=== PATIENT | female | born 1995 | race Caucasian/White ===

== ENCOUNTER 2019-07-11 23:47 | Inpatient (IN) ==
[2019-07-12] MEDS ORDERED: MEPERIDINE 50 MG/1 ML VIAL IV PRN
[2019-07-12] MEDS ORDERED: BUTORPHANOL 1 MG/ML VIAL IV PRN
[2019-07-12 00:24] LABS: Basophils % 0.3 % (0.0-0.8); Eosinophils # 0.1 10*3/uL (0.0-0.87); Eosinophils % 0.5 % (0.00-10.9); Hematocrit 33.8 VOL% (35.7-47.0); Hemoglobin 10.7 GM/DL (12.0-16.0); Immature Granulocytes % 2.3 %; Immature Granulocytes Absolute 0.22 #; Lymphocytes # 1.8 10*3/uL (1.4-4.0); Lymphocytes % 18.9 % (21.3-54.2); Mean Corpuscular HGB Conc 31.7 GM/DL (32-36); Mean Corpuscular Volume 87.8 FL (87-102); Mean Platelet Volume 11.7 FL (9.6-12.0); Platelet Count 174 T/CUMM (130-400); Red Blood Count 3.85 MC/CUMM (3.8-5.5); Red Cell Distribution Width 13.5 % (9.3-17.3); White Blood Count 9.5 T/CUMM (4-12)
[2019-07-12 00:36] LABS: INR 0.9; PT Patient Result 9.3 SECS; Partial Thromboplastin Time 24.6 SECS (20-40)
[2019-07-12 00:37] LABS: Alanine Aminotransferase 21 U/L (13-56); Albumin 2.5 G/DL (3.4-5.0); Alkaline Phosphatase 153 U/L (45-117); Aspartate Amino Transferase 21 U/L (0-37); Bilirubin,Total < 0.39 MG/DL (0.2-1.0); Blood Urea Nitrogen 9 MG/DL (7-18); Glucose 86 MG/DL (74-106); Osmolality,Calculated 276.4 MOS/KG (273-304); Uric Acid 2.8 MG/DL (2.6-6.0)
[2019-07-12 00:46] LABS: Apearance,Urine Slightly Hazy (Clear); Bacteria,Urine Occasional /HPF (Few); Bilirubin,Urine Negative (Negative); Blood, Urine Negative (Negative); Glucose,Urine (UA) Negative (Negative); Ketones,Urine Negative (Negative); Mucus,Urine Occasional /LPF (Occasional); Nitrite,Urine Negative (Negative); Protein,Urine 30 MG/DL; Squamous Epithelial Cell,Urine Few /HPF (0-10); Urine Color Yellow (Yellow); Urine Specific Gravity 1.017 (1.001-1.035); Urine Urobilinogen < 2.0 EU/DL (0.2-1.0); WBC,Urine 2 /HPF (0-6)
[2019-07-12] MEDS: LACTATED RINGERS 1,000 ML IV SCH ×3 (03:49→14:22)
[2019-07-12] MEDS ORDERED: OXYTOCIN/LR 20 UNIT/1,000 ML BAG IV SCH (09:00)
[2019-07-12] MEDS ORDERED: NALOXONE 0.4 MG/ML VIAL IV PRN (13:20)
[2019-07-12] MEDS ORDERED: diphenhydrAMINE 50 MG/1 ML VIAL IV PRN ×3 (13:20→21:58)
[2019-07-12] MEDS ORDERED: ePHEDrine 50 MG/ML AMP IV PRN (13:20)
[2019-07-12] MEDS ORDERED: FAMOTIDINE 20 MG/2 ML VIAL IV ONE (13:20)
[2019-07-12] MEDS ORDERED: LACTATED RINGERS 1,000 ML IV ONE (13:20)
[2019-07-12] MEDS ORDERED: CITRIC ACID/SODIUM CITRATE 30 ML UDCUP PO ONE (13:20)
[2019-07-12] MEDS ORDERED: fentaNYL 2 MCG/ROPIV 0.2% EPID 100 ML EPIDURAL SCH (13:30)
[2019-07-12 14:48] LABS: Apearance,Urine CLEAR (Clear); Bilirubin,Urine Negative (Negative); Blood, Urine Negative (Negative); Glucose,Urine (UA) Negative (Negative); Ketones,Urine 5 mg/dL (Negative); Nitrite,Urine Negative (Negative); Protein,Urine Negative; RBC,Urine <1 /HPF (0-4); Squamous Epithelial Cell,Urine Occasional /HPF (0-10); Urine Color Straw (Yellow); Urine Specific Gravity 1.005 (1.001-1.035); Urine Urobilinogen < 2.0 EU/DL (0.2-1.0); WBC,Urine <1 /HPF (0-6)
[2019-07-12] MEDS ORDERED: ceFAZolin 2,000 MG in PREMIX 1 EACH IV ONE (16:54)
[2019-07-12] MEDS ORDERED: OXYTOCIN/LR 30 UNIT/1,000 ML BAG IV ONE (16:55)
[2019-07-12] MEDS ORDERED: OXYTOCIN 10 UNIT/ML VIAL IM ONE (16:55)
[2019-07-12] MEDS ORDERED: CARBOPROST TROMETHAMINE 250 MCG/ML AMP IM ONE (17:09)
[2019-07-12] MEDS ORDERED: miSOPROStol 200 MCG TABLET ONE (17:38)
[2019-07-12] MEDS ORDERED: MORPHINE 10 MG/10 ML VIAL ONE (18:41)
[2019-07-12] MEDS ORDERED: ACETAMINOPHEN 325 MG TABLET PO PRN (18:42)
[2019-07-12] MEDS ORDERED: SIMETHICONE CHEW 80 MG TABLET PO PRN (18:42)
[2019-07-12] MEDS ORDERED: ONDANSETRON 4 MG/2 ML VIAL IV PRN ×2 (18:42)
[2019-07-12] MEDS ORDERED: OXYTOCIN/LR 20 UNIT/1,000 ML BAG IV ONE (18:42)
[2019-07-12] MEDS ORDERED: RHO(D) IMMUNE GLOBULIN 300 MCG SYRINGE IM ONE (18:42)
[2019-07-12] MEDS ORDERED: MAGNESIUM HYDROXIDE SUSP 30 ML UDCUP PO PRN (18:42)
[2019-07-12 18:55] LABS: Cord Venous Blood HCO3 22.6 MMOL/L; Cord Venous Blood PCO2 43.5 MMHG; Cord Venous Blood PO2 30.7
[2019-07-12] MEDS ORDERED: LACTATED RINGERS 1,000 ML IV SCH (19:00)
[2019-07-12] MEDS ORDERED: KETOROLAC 30 MG/1 ML VIAL IV PRN (21:58)
[2019-07-12] MEDS: DOCUSATE SODIUM 100 MG CAPSULE PO SCH (22:12)
[2019-07-12] MEDS ORDERED: hydrOXYzine HCL 25 MG/1 ML VIAL IM PRN (23:18)
[2019-07-12] MEDS ORDERED: diphenhydrAMINE 2% CREAM 28 GM TUBE TOP PRN (23:20)
[2019-07-13] MEDS ORDERED: diphenhydrAMINE 50 MG/1 ML VIAL IV PRN (02:10)
[2019-07-13] MEDS: ceFAZolin 1,000 MG in SYRINGE 1 EACH IV SCH ×2 (02:23→12:30)
[2019-07-13 03:22] LABS: Basophils % 0.2 % (0.0-0.8); Eosinophils % 0.2 % (0.00-10.9); Hematocrit 27.5 VOL% (35.7-47.0); Hemoglobin 8.6 GM/DL (12.0-16.0); Immature Granulocytes % 0.6 %; Immature Granulocytes Absolute 0.06 #; Lymphocytes # 1.2 10*3/uL (1.4-4.0); Lymphocytes % 12.6 % (21.3-54.2); Mean Corpuscular HGB Conc 31.3 GM/DL (32-36); Mean Corpuscular Volume 88.4 FL (87-102); Mean Platelet Volume 12.2 FL (9.6-12.0); Monocytes % 8.2 % (1.7-12.7); Neutrophils % 78.2 % (38.7-73.9); Platelet Count 139 T/CUMM (130-400); Red Blood Count 3.11 MC/CUMM (3.8-5.5); Red Cell Distribution Width 13.8 % (9.3-17.3); White Blood Count 9.6 T/CUMM (4-12)
[2019-07-13] MEDS: IBUPROFEN 800 MG TABLET PO PRN ×2 (06:37→19:15)
[2019-07-13] MEDS: MAGNESIUM HYDROXIDE SUSP 30 ML UDCUP PO SCH ×2 (08:42→21:01)
[2019-07-13] MEDS: MULTIVITAMIN (PRENATAL) TABLET PO SCH (08:42)
[2019-07-13] MEDS: FERROUS SULFATE 325 MG TABLET PO SCH ×3 (08:42→21:01)
[2019-07-13] MEDS: METOCLOPRAMIDE 10 MG TABLET PO SCH ×3 (08:42→23:49)
[2019-07-13] MEDS: DOCUSATE SODIUM 100 MG CAPSULE PO SCH ×2 (08:42→21:01)
[2019-07-13 10:58] LABS: Basophils % 0.1 % (0.0-0.8); Eosinophils % 0.2 % (0.00-10.9); Hematocrit 25.9 VOL% (35.7-47.0); Hemoglobin 8.3 GM/DL (12.0-16.0); Immature Granulocytes % 0.9 %; Immature Granulocytes Absolute 0.08 #; Lymphocytes # 0.9 10*3/uL (1.4-4.0); Lymphocytes % 10.9 % (21.3-54.2); Mean Corpuscular Volume 87.2 FL (87-102); Mean Platelet Volume 11.3 FL (9.6-12.0); Monocytes % 7.9 % (1.7-12.7); Platelet Count 146 T/CUMM (130-400); Red Blood Count 2.97 MC/CUMM (3.8-5.5); Red Cell Distribution Width 13.7 % (9.3-17.3); White Blood Count 8.6 T/CUMM (4-12)
[2019-07-13] MEDS ORDERED: ceFAZolin 1,000 MG in SYRINGE 1 EACH IV SCH (12:00)
[2019-07-14 07:49] VITALS: BP 121/69
[2019-07-14] MEDS: MULTIVITAMIN (PRENATAL) TABLET PO SCH (08:01)
[2019-07-14] MEDS: FERROUS SULFATE 325 MG TABLET PO SCH (08:01)
[2019-07-14] MEDS: DOCUSATE SODIUM 100 MG CAPSULE PO SCH (08:02)
[2019-07-14] MEDS: IBUPROFEN 800 MG TABLET PO PRN (08:02)
[2019-07-14] MEDS: MAGNESIUM HYDROXIDE SUSP 30 ML UDCUP PO SCH (08:27)
[2019-07-14] MEDS: METOCLOPRAMIDE 10 MG TABLET PO SCH (08:27)
[2019-07-14] MEDS ORDERED: DIPH/TET/ACEL PERT BOOSTER VACCINE 0.5 ML VIAL IM ONE (11:32)
== END 2019-07-14 17:05 | disposition home or self-care (01) | DRG 788 ==
LOC: N.LDOUT 23:47 → N.LD 23:49 → N.OB 07-12 21:35
PROVIDERS: ADMIT Obstetrics & Gynecology; ATTEND Obstetrics & Gynecology
PROC: LDCSECT (ICD-10-PCS; 2019-07-12 17:30)